=== PATIENT | male | born 1975 ===

== ENCOUNTER 2017-11-10 06:39 | Day surgery (SDC) | payer OTHER | END 2017-11-10 11:50 | disposition home or self-care (01) | LOC: AMB-ENDOS 06:39 | DX: K64.1 Second degree hemorrhoids (principal); Z80.0 Family history of malignant neoplasm of digestive organs ==

== ENCOUNTER → 2018-07-02 | Day surgery (SDC) | payer OTHER ==
[~2018-07-02] MED LIST: LEVSIN/SL0.125 MG SL; PEPCID40 MG PO; PHENERGAN25 MG PO
== END | disposition home or self-care (01) ==
LOC: CIR.AMB 06:33
PROVIDERS: Specialist
PROC: 0J063ZZ Alteration of Chest Subcutaneous Tissue and Fascia, Percutaneous Approach (ICD-10-PCS; 2018-07-02)
PROC: 0HTV0ZZ Resection of Bilateral Breast, Open Approach (ICD-10-PCS; principal; 2018-07-02 07:00)
DX: N62 Hypertrophy of breast (principal); E65 Localized adiposity

== ENCOUNTER 2018-07-06 01:14 | Emergency (ER) | payer OTHER ==
[~2018-07-06] VITALS: Ht 182.9 cm; Wt 102.1 kg
[2018-07-06] MEDS ORDERED: PHENERGAN25 MG PO (06:24)
[2018-07-06] MEDS ORDERED: LEVSIN/SL0.125 MG SL ×3 (06:24→06:25)
[2018-07-06] MEDS ORDERED: PEPCID40 MG PO (06:24)
== END 2018-07-06 06:29 | disposition home or self-care (01) ==
LOC: ER 01:14
DX: R10.13 Epigastric pain (principal)